=== PATIENT | male | born 2000 | race Caucasian/White ===

== ENCOUNTER 2021-01-09 12:21 | Emergency (ER) | payer BC ==
[~2021-01-09] VITALS: Ht 175.3 cm; Wt 77.1 kg
--- NOTE | 2021-01-09 12:35 | NUR ---
Dr Garza at the bedside for MSE.
--- NOTE | 2021-01-09 13:15 | NUR ---
Suture site cleaned and dresed per MD order.
--- NOTE | 2021-01-09 13:21 | NUR ---
Patient discharged to home in stable condition. Written and verbal after care instructions given. Patient verbalizes understanding of instructions. Stressed follow up or return to ER for worsening s/s.
[2021-01-09 13:22] VITALS: BP 121/73
[2021-01-09] MEDS ORDERED: LIDOCAINE HCL 2% 20 ML VIAL IJ ONE (13:30)
== END 2021-01-09 13:22 | disposition home or self-care (01) ==
LOC: ER 12:21
DX: S61.211A Laceration without foreign body of left index finger without damage to nail, initial encounter (principal); W25.XXXA Contact with sharp glass, initial encounter; Y92.89 Other specified places as the place of occurrence of the external cause
CPT/HCPCS: 12001; 99282; J3490; A4663

== ENCOUNTER 2021-01-12 15:19 | Emergency (ER) | payer BC ==
[~2021-01-12] VITALS: Ht 175.3 cm; Wt 77.1 kg
[2021-01-12] MEDS ORDERED: NEOMY/BACITRA/POLYMYXIN B OINT UD PACKET TP ONE (15:39)
== END 2021-01-12 15:40 | disposition home or self-care (01) ==
LOC: ER 15:19
DX: S61.211D Laceration without foreign body of left index finger without damage to nail, subsequent encounter (principal); X58.XXXD Exposure to other specified factors, subsequent encounter
CPT/HCPCS: A4217; A4663

== ENCOUNTER 2021-01-18 10:21 | Emergency (ER) | payer BC ==
[~2021-01-18] VITALS: Ht 175.3 cm; Wt 77.1 kg
--- NOTE | 2021-01-18 10:29 | NUR ---
at bedside for assessment
[2021-01-18] MEDS ORDERED: NEOMY/BACITRA/POLYMYXIN B OINT UD PACKET TP ONE ×2 (10:40→10:45)
--- NOTE | 2021-01-18 10:45 | NUR ---
Sutures to left index finger removed, steri strips applied to patients left finger laceration,triple antibiotic applied, bandaid applied to reinforce
--- NOTE | 2021-01-18 10:51 | NUR ---
Patient discharged to home in stable condition. Able to ambulate with gait, no signs of acute distress noted, given extra steri strips Written and verbal after care instructions given. Patient verbalizes understanding of instructions. Stressed follow up or return to ER for worsening s/s.
== END 2021-01-18 11:01 | disposition home or self-care (01) ==
LOC: ER 10:21
DX: S61.211D Laceration without foreign body of left index finger without damage to nail, subsequent encounter (principal); W45.8XXD Other foreign body or object entering through skin, subsequent encounter
CPT/HCPCS: A4663